=== PATIENT | male | born 1930 ===

== ENCOUNTER 2016-10-07 11:07 | Inpatient (IN) | payer MEDICARE ==
[2016-10-07] VITALS (8 sets, daily range): BP systolic 106–119; BP diastolic 55–59; PULSE 60–78; RESP 16–24; TEMP 96–97.6; O2SAT 99–100
[~2016-10-07] VITALS: Ht 177.8 cm; Wt 68.9 kg
--- NOTE | 2016-10-07 11:16 | PD ---
HPI . Abnormal labs Chief Complaint: abnormal labs Time Seen by Provider: 11:16 Travel History International Travel<30 days: No Contact w/Intl Traveler<30days: No Traveled to known affect area: No History of Present Illness HPI 86-year-old male with multiple medical issues including diabetes, chronic kidney disease, atrial fibrillation, hypothyroidism, hyperlipidemia, GERD, atherosclerotic heart disease, CHF, Parkinson's disease here with abnormal BUN/ creatinine. Patient resides in independent living facility in [place] and was called by his primary care provider Dr. Spears and told to go to the nearest emergency department. Patient was reported to have a BUN of 97 and a creatinine of 2.2. Patient was told he was in acute on chronic kidney disease. He [facility]. Currently he has no complaints. He denies any changes with his urine production or stream. He denies any type of pain. He tells me he feels good and just came in because, "The doctor told me my kidneys are failing." He is not a dialysis patient. FORMERLY [facility], [facility] Social History Alcohol Use: No Tobacco Use: No Substance Use: No Allergies-Medications (Allergen,Severity, Reaction): Coded Allergies: No Known Allergies (Unverified , 10/07/16) Reported Meds & Prescriptions Reported Meds & Active Scripts Active Reported Symbicort Inh (Budesonide/Formoterol Fumarate) 160-4.5 Mcg/Act Aero 2 Puff INH Q12HR Metolazone 2.5 Mg Tab 2.5 Mg PO EVERY 48 HOURS PRN Potassium Chloride ER (Potassium Chloride) 10 Meq Tab 10 Meq PO BID Glipizide 5 Mg Tab 5 Mg PO BID Bumetanide 2 Mg Tab 2 Mg PO BID Trazodone (Trazodone HCl) 50 Mg Tab 50 Mg PO HS Aldactone (Spironolactone) 25 Mg Tab 25 Mg PO DAILY Primidone 50 Mg Tab 100 Mg PO HS Omeprazole 20 Mg Tab 20 Mg PO DAILY Take 30 minutes before meal Metoprolol Succinate ER 24 HR (Metoprolol Succinate) 50 Mg Tab 50 Mg PO DAILY Losartan (Losartan Potassium) 25 Mg Tab 25 Mg PO DAILY Levothyroxine (Levothyroxine Sodium) 75 Mcg Tab 75 Mcg PO DAILY Ferrousul (Ferrous Sulfate) 325 Mg Tab 325 Mg PO DAILY Lanoxin (Digoxin) 125 Mcg Tablet 125 Mcg PO MOWEFR Take 1 tablet (125mcg) daily on Sunday,Sunday and Sunday Lanoxin (Digoxin) 125 Mcg Tablet 62.5 Mcg PO SUNDAY Take 1/2 tab (62.5mcg) weekly on Sundays Aspirin Adult Low Strength (Aspirin) 81 Mg Tabdr 81 Mg PO DAILY Allopurinol 300 Mg Tab 150 Mg PO DAILY Review of Systems General / Constitutional: No: Fever Eyes: No: Visual changes HENT: No: Headaches Cardiovascular: No: Chest Pain or Discomfort, Palpitations, Irregular Rhythm, Tachycardia Respiratory: No: Cough, Shortness of Breath Gastrointestinal: No: Nausea, Vomiting, Diarrhea, Abdominal Pain Genitourinary: No: Urgency, Frequency, Dysuria, Nocturia, Hematuria, Flank Pain Musculoskeletal: No: Myalgias, Pain Skin: No Rash Neurologic: No: Weakness Psychiatric: No: Depression Endocrine: No: Polydipsia Hematologic/Lymphatic: No: Easy Bruising Physical Exam Narrative GENERAL: AAO x 3, no acute distress, Well-nourished, well-developed patient. SKIN: Warm and dry. No visible rashes or bruising. HEAD: Normocephalic and atraumatic. EYES: No scleral icterus. No injection or drainage. EOM intact, PERRLA ENT: No nasal drainage noted. Mucous membranes pink. Airway patent. NECK: Supple, trachea midline. No JVD. no lymphadenopathy CARDIOVASCULAR: Regular rate and rhythm without murmurs, gallops, or rubs. RESPIRATORY: Breath sounds diminished. No accessory muscle use. No rhonchi or rales. normoactive bowel sounds GASTROINTESTINAL: Abdomen soft, non-tender, nondistended. EXTREMITIES: No cyanosis or edema. BACK: Nontender without obvious deformity. No CVA tenderness. NEURO: CN II-12 intact, baker paint strength normal b/l, UE and LE 5/5, no focal deficits PSYCH: AAO x 3, normal affect. Data Data Last Documented VS Vital Signs Date Time Temp Pulse Resp B/P Pulse Ox O2 Delivery O2 Flow Rate FiO2 10/07/16 12:57 76 19 119/57 100 Nasal Cannula 2 10/07/16 11:33 97.6 Orders Complete Blood Count With Diff (10/07/16 11:23) Comprehensive Metabolic Panel (10/07/16 11:23) Chest, Single Ap (10/07/16 ) Sodium Chlor 0.9% 1000 Ml Inj (Ns 1000 M (10/07/16 12:30) Diet Heart Healthy (10/07/16 Lunch) Diet 1800 Ada Cons Carb (10/07/16 Lunch) Vital Signs (Adult) HÉCTOR.Q4H (10/07/16 13:09) Basic Metabolic Panel (Bmp) (10/08/16 06:00) Blood Glucose Goal (Criteria) (10/07/16 13:09) Hypoglycemia 70 Mg/Dl Or < (10/07/16 13:09) Notify Dr: Other (10/07/16 13:09) Dextrose 50% In Evaristo (Vial) Inj (D50w (Vi (10/07/16 13:15) Glucagon Inj (Glucagon Inj) (10/07/16 13:15) Insulin Aspart Supplemtl Scale (Novolog (10/07/16 16:00) Acetaminophen (Tylenol) (10/07/16 13:15) Intake + Output 06,14,22 (10/07/16 13:09) Ondansetron Inj (Zofran Inj) (10/07/16 13:15) Admit To Inpatient (10/07/16 ) Inpatient Certification (10/07/16 ) Us Kidney/Renal/Bladder (10/07/16 ) Consult Nephrology (10/07/16 ) Consult Pt Eval & Treat (10/07/16 13:28) Scd Bilateral/Knee High HÉCTOR.QSHIFT (10/07/16 13:28) Code Status (10/07/16 13:28) Allopurinol (Zyloprim) (10/08/16 09:00) Aspirin Ec (Ecotrin Ec) (10/08/16 09:00) Budeson-Formot 160-4.5 Mg Inh (Symbicort (10/07/16 21:00) Digoxin (Lanoxin) (10/08/16 09:00) Digoxin (Lanoxin) (10/09/16 13:30) Ferrous Sulfate (Ferrous Sulfate) (10/08/16 09:00) Levothyroxine (Synthroid) (10/08/16 09:00) Metoprolol Succinate Er (Toprol Xl) (10/08/16 09:00) Primidone (Mysoline) (10/07/16 21:00) Pantoprazole (Protonix) (10/08/16 09:00) Sodium Chlor 0.9% 1000 Ml Inj (Ns 1000 M (10/07/16 13:45) Albuterol Neb (Albuterol Neb) (10/07/16 13:45) Pill Splitter (Pill Splitter) (10/07/16 13:45) Ua With No Microscopy (10/07/16 13:37) Digoxin (10/07/16 13:37) Admit Order (Ed Use Only) (10/07/16 13:44) Labs Laboratory Tests Test 10/07/16 11:30 White Blood Count 8.8 TH/MM3 Red Blood Count 3.46 MIL/MM3 Hemoglobin 11.4 GM/DL Hematocrit 32.6 % Mean Corpuscular Volume 94.4 FL Mean Corpuscular Hemoglobin 32.9 PG Mean Corpuscular Hemoglobin 34.9 % Concent Red Cell Distribution Width 16.3 % Platelet Count 123 TH/MM3 Mean Platelet Volume 7.5 FL Neutrophils (%) (Auto) 74.1 % Lymphocytes (%) (Auto) 13.1 % Monocytes (%) (Auto) 9.9 % Eosinophils (%) (Auto) 2.1 % Basophils (%) (Auto) 0.8 % Neutrophils # (Auto) 6.5 TH/MM3 Lymphocytes # (Auto) 1.2 TH/MM3 Monocytes # (Auto) 0.9 TH/MM3 Eosinophils # (Auto) 0.2 TH/MM3 Basophils # (Auto) 0.1 TH/MM3 CBC Comment AUTO DIFF Differential Comment AUTO DIFF CONFIRMED Sodium Level 135 MEQ/L Potassium Level 3.8 MEQ/L Chloride Level 96 MEQ/L Carbon Dioxide Level 32.6 MEQ/L Anion Gap 6 MEQ/L Blood Urea Nitrogen 101 MG/DL Creatinine 2.30 MG/DL Estimat Glomerular Filtration 27 ML/MIN Rate Random Glucose 132 MG/DL Calcium Level 9.0 MG/DL Total Bilirubin 0.4 MG/DL Aspartate Amino Transf 18 U/L (AST/SGOT) Alanine Aminotransferase 26 U/L (ALT/SGPT) Alkaline Phosphatase 67 U/L Total Protein 7.7 GM/DL Albumin 3.6 GM/DL MDM Medical Decision Making Medical Screen Exam Complete: Yes Emergency Medical Condition: Yes Medical Record Reviewed: Yes Differential Diagnosis acute on chronic kidney disease, anemia, upper GI bleed, Narrative Course 86-year-old male sent by his primary care provider for worsening BUN and creatinine. Patient does have chronic kidney disease. IV access, labs and chest x-ray have been ordered. Chest x-ray without any evidence of acute CHF. BUN and creatinine are elevated. BUN 101. Case discussed with my attending Dr. Fitzpatrick, who has also seen the patient. IV fluids provided. Recommended overnight admission and possible consultation with nephrology pending recommendations from hospitalist team. I have discussed with patient and he has accepted the recommended treatment plan. [id number]: Callback requested from [facility] Discussed with Dr. Velázquez, who has accepted the patient for inpatient admission. Diagnosis Primary Impression: Acute on chronic kidney failure Qualified Code: N17.9 - Acute renal failure superimposed on chronic kidney disease, unspecified CKD stage, unspecified acute renal failure type Admitting Information Admitting Physician Requests: Admit Condition: Stable Ashley Ledesma Oct 07, 2016 11:16
--- NOTE | 2016-10-07 11:51 | RADRPT ---
EXAM DATE/TIME: 10/07/2016 11:42 [facility] COMPARISON: No previous studies available for comparison. INDICATIONS : Cough and shortness of breath. MEDICAL HISTORY : Chronic obstructive pulmonary disease. A-fib. SURGICAL HISTORY : Pacemaker. CABG. ENCOUNTER: Initial ACUITY: 2 days PAIN SCORE: 0/10 LOCATION: chest FINDINGS: The heart is enlarged. The patient is post median sternotomy. There chronic interstitial changes with in the pulmonary parenchyma. There is minimal effusion at the right lung base. There is a pacer in pl huma. The visualized bony structures demonstrate degenerative changes but are otherwise intact. CONCLUSION: 1. Interstitial changes and mild cardiomegaly. 2. Minimal right basilar pleural effusion. 3. Of note, the third sternal wire is no longer intact. 4. No acute abnormalities. Eddie Barkley MD on October 07, 2016 at 11:47 Board Certified Radiologist. This report was verified electronically.
[2016-10-07 11:53] LABS: AUTOMATED NEUTROPHIL # 6.5 TH/MM3 (1.8-7.7); BASOPHIL # 0.1 TH/MM3 (0-0.2); BASOPHIL % 0.8 % (0.0-2.0); EOSINOPHIL # 0.2 TH/MM3 (0-0.4); EOSINOPHIL % 2.1 % (0.0-4.0); HEMATOCRIT 32.6 % (39.0-51.0); LYMPH % 13.1 % (9.0-44.0); LYMPHOCYTE # 1.2 TH/MM3 (1.0-4.8); MEAN CELL VOLUME 94.4 FL (80.0-100.0); MEAN CORPUSCULAR HEMOGLOBIN 32.9 PG (27.0-34.0); MEAN CORPUSCULAR HGB CONC 34.9 % (32.0-36.0); MONO % 9.9 % (0.0-8.0); NEUT % 74.1 % (16.0-70.0); PLATELET COUNT 123 TH/MM3 (150-450); RED BLOOD COUNT 3.46 MIL/MM3 (4.50-5.90); RED CELL DISTRIBUTION WIDTH 16.3 % (11.6-17.2); WHITE BLOOD COUNT 8.8 TH/MM3 (4.0-11.0)
[2016-10-07 11:54] LABS: HEMO FLAGS AUTO DIFF
[2016-10-07] MEDS ORDERED: METO50TA11 PO (12:01)
[2016-10-07] MEDS ORDERED: LEVO75TA3 PO (12:01)
[2016-10-07] MEDS ORDERED: ALLO300T2 PO (12:01)
[2016-10-07] MEDS ORDERED: GLIP5TAB8 PO (12:01)
[2016-10-07] MEDS ORDERED: TRAZ50TA12 PO (12:01)
[2016-10-07] MEDS ORDERED: ASPI1TAB91 PO (12:01)
[2016-10-07] MEDS ORDERED: OMEP20TA PO (12:01)
[2016-10-07] MEDS ORDERED: LOSA25TA PO (12:01)
[2016-10-07] MEDS ORDERED: FERR325T86 PO (12:01)
[2016-10-07] MEDS ORDERED: METO2.5T PO (12:01)
[2016-10-07] MEDS ORDERED: BUME2TAB PO (12:01)
[2016-10-07] MEDS ORDERED: SPIR25 PO (12:01)
[2016-10-07] MEDS ORDERED: PRIM50TA5 PO (12:01)
[2016-10-07] MEDS ORDERED: POTA10TA2 PO (12:01)
[2016-10-07] MEDS ORDERED: LANO0.12 PO ×2 (12:01)
[2016-10-07 12:10] LABS: ALT (GPT) 26 U/L (12-78); ANION GAP 6 MEQ/L (5-15); AST (GOT) 18 U/L (15-37); BICARBONATE 32.6 MEQ/L (21.0-32.0); BLOOD UREA NITROGEN 101 MG/DL (7-18); CHLORIDE 96 MEQ/L (98-107); GLOMERULAR FILTRATION RATE 27 ML/MIN (>89); POTASSIUM 3.8 MEQ/L (3.5-5.1); SODIUM (NA) 135 MEQ/L (136-145)
[2016-10-07 12:11] LABS: ALKALINE PHOSPHATASE 67 U/L (45-117); TOTAL BILIRUBIN ADULT 0.4 MG/DL (0.2-1.0)
[2016-10-07] MEDS ORDERED: SODIUM CHLOR 0.9% 1000 ML INJ 1,000 ML IV ONE ×2 (12:30→13:45)
[2016-10-07 12:31] LABS: SCAN/DIFF AUTO DIFF CONFIRMED
[2016-10-07] MEDS ORDERED: SYMB160A INH (12:56)
[2016-10-07] MEDS ORDERED: ACETAMINOPHEN 325 MG TAB PO PRN (13:15)
[2016-10-07] MEDS ORDERED: DEXTROSE 50% IN WATER 50 ML VIAL(D50) IV PRN (13:15)
[2016-10-07] MEDS ORDERED: ONDANSETRON HCL 4 MG/2 ML VIAL IV PUSH PRN (13:15)
[2016-10-07] MEDS ORDERED: GLUCAGON 1 MG/ML VIAL OTHER PRN (13:15)
[2016-10-07] MEDS ORDERED: RESP: ALBUTEROL 1.25 MG/3 ML NEB (PRN) NEB (13:45)
[2016-10-07] MEDS ORDERED: PILL SPLITTER OTHER PRN (13:45)
--- NOTE | 2016-10-07 13:46 | HHI.HP ---
[facility] Unknown Admission Diagnosis renal failure Diagnoses: (1) Acute on chronic kidney failure Diagnosis: Principal Chief Complaint: ' I was told to come to the hospital'. Travel History International Travel<30 Days: No Contact w/Intl Traveler <30 Da: No Traveled to Known Affected Are: No History of Present Illness patient is a 86 y/o male with history of renal insufficiency, CHF, diabetes, COPD, Parkinson's disease,hypothyroidism, who presented to ER after he was advised to come to the hospital by his PCP. he says that he had a ' blood work' done few days ago and he was called with the result of his blood work and advised to come to ER due to his elevated BUN and creatinine. however he denies any new symptom- including chest pain, nausea, abdominal pain, dizziness. he says that he's had some sob ' which is not new' and he relates this to his CHF and COPD. of note he's on home oxygen. Review of Systems Constitutional: DENIES: Fever, Weight loss, Chills, Night Sweats Eyes: DENIES: Blurred vision, Diplopia, Vision loss, Double Vision Ears, nose, mouth, throat: DENIES: Tinnitus, Vertigo, Throat pain, Epistaxis Respiratory: COMPLAINS OF: Shortness of breath, DENIES: Apneas, Cough, Snoring , Wheezing, Hemoptysis, Sputum production Cardiovascular: DENIES: Chest pain, Palpitations, Syncope, Dyspnea on Exertion , PND, Lower Extremity Edema, Orthopnea, Claudication Gastrointestinal: DENIES: Abdominal pain, Black stools, Bloody stools, Constipation, Diarrhea, Nausea, Vomiting, Difficulty Swallowing, Anorexia Genitourinary: DENIES: Urinary frequency, Urgency, Hematuria, Dysuria Musculoskeletal: DENIES: Joint pain, Muscle aches, Stiffness, Joint Swelling Integumentary: DENIES: Rash Neurologic: DENIES: Abnormal gait, Headache, Localized weakness, Paresthesias, Seizures, Speech Problems, Tremor, Poor Balance Psychiatric: DENIES: Anxiety, Confusion, Mood changes, Depression, Hallucinations, Agitation, Suicidal Ideation, Homicidal Ideation, Delusions Past Family Social History Past Medical History CHF diabetes mellitus CAD renal insufficiency hypothyroidism parkinson's disease Past Surgical History CABG hernia repair Reported Medications Symbicort Inh (Budesonide/Formoterol Fumarate) 160-4.5 Mcg/Act Aero 2 Puff INH Q12HR Metolazone 2.5 Mg Tab 2.5 Mg PO EVERY 48 HOURS PRN Potassium Chloride ER (Potassium Chloride) 10 Meq Tab 10 Meq PO BID Glipizide 5 Mg Tab 5 Mg PO BID Bumetanide 2 Mg Tab 2 Mg PO BID Trazodone (Trazodone HCl) 50 Mg Tab 50 Mg PO HS Aldactone (Spironolactone) 25 Mg Tab 25 Mg PO DAILY Primidone 50 Mg Tab 100 Mg PO HS Omeprazole 20 Mg Tab 20 Mg PO DAILY Take 30 minutes before meal Metoprolol Succinate ER 24 HR (Metoprolol Succinate) 50 Mg Tab 50 Mg PO DAILY Losartan (Losartan Potassium) 25 Mg Tab 25 Mg PO DAILY Levothyroxine (Levothyroxine Sodium) 75 Mcg Tab 75 Mcg PO DAILY Ferrousul (Ferrous Sulfate) 325 Mg Tab 325 Mg PO DAILY Lanoxin (Digoxin) 125 Mcg Tablet 125 Mcg PO Take 1 tablet (125mcg) daily on Sunday,Sunday and Sunday Lanoxin (Digoxin) 125 Mcg Tablet 62.5 Mcg PO SUNDAY Take 1/2 tab (62.5mcg) weekly on Sundays Aspirin Adult Low Strength (Aspirin) 81 Mg Tabdr 81 Mg PO DAILY Allopurinol 300 Mg Tab 150 Mg PO DAILY Allergies: Coded Allergies: No Known Allergies (Unverified , 10/07/16) Active Ordered Medications Current Medications Sodium Chloride (NS 1000 ml Inj) 1,000 ml @ 999 mls/hr BOLUS ONCE IV Last administered on 10/07/16t 12:39; Start 10/07/16 at 12:30; Stop 10/07/16 at 13:30 Dextrose (D50w (Vial) Inj) 50 ml UNSCH PRN IV HYPOGLYCEMIA-SEE COMMENTS; Start 10/07/16 at 13:15 Glucagon (Glucagon Inj) 1 mg UNSCH PRN OTHER HYPOGLYCEMIA-SEE COMMENTS; Start 10/07/16 at 13:15 Insulin Aspart (NovoLOG SUPPLEMENTAL SCALE) 1 ACHS SLIDING SCALE SQ ; Start at 16:00 Acetaminophen (Tylenol) 650 mg Q4H PRN PO FEVER/PAIN 1-10; Start 10/07/16 at 13 :15 Ondansetron HCl (Zofran Inj) 4 mg Q8HR PRN IV PUSH NAUSEA; Start 10/07/16 at 13 :15 Family History heart disease in father. Social History quit smoking years ago- [facility] resident. Physical Exam Vital Signs Vital Signs Date Time Temp Pulse Resp B/P Pulse Ox O2 Delivery O2 Flow Rate FiO2 10/07/16 12:57 76 19 119/57 100 Nasal Cannula 2 10/07/16 11:36 70 19 106/56 100 Nasal Cannula 2 10/07/16 11:33 97.6 60 24 106/56 100 Physical Exam GENERAL: elderly male, in no apparent distress. SKIN: No rashes, ecchymoses or lesions. Cool and dry. HEAD: Atraumatic. Normocephalic. No temporal or scalp tenderness. EYES: Pupils equal round and reactive. Extraocular motions intact. No scleral icterus. No injection or drainage. ENT: Nose without bleeding, purulent drainage or septal hematoma. Throat without erythema, tonsillar hypertrophy or exudate. Uvula midline. Airway patent. NECK: Trachea midline. No JVD or lymphadenopathy. Supple, nontender, no meningeal signs. CARDIOVASCULAR: Regular rate and rhythm without murmurs, gallops, or rubs. RESPIRATORY: Clear to auscultation. Breath sounds equal bilaterally. No wheezes , rales, or rhonchi. GASTROINTESTINAL: Abdomen soft, non-tender, nondistended. No hepato-splenomegaly , or palpable masses. No guarding. MUSCULOSKELETAL: Extremities with mild bilateral pedal edema. NEUROLOGICAL: Awake and alert. Cranial nerves II through XII intact. Motor and sensory grossly within normal limits. Five out of 5 muscle strength in all muscle groups. Normal speech. Laboratory Laboratory Tests Test 10/07/16 11:30 White Blood Count 8.8 Red Blood Count 3.46 Hemoglobin 11.4 Hematocrit 32.6 Mean Corpuscular Volume 94.4 Mean Corpuscular Hemoglobin 32.9 Mean Corpuscular Hemoglobin 34.9 Concent Red Cell Distribution Width 16.3 Platelet Count 123 Mean Platelet Volume 7.5 Neutrophils (%) (Auto) 74.1 Lymphocytes (%) (Auto) 13.1 Monocytes (%) (Auto) 9.9 Eosinophils (%) (Auto) 2.1 Basophils (%) (Auto) 0.8 Neutrophils # (Auto) 6.5 Lymphocytes # (Auto) 1.2 Monocytes # (Auto) 0.9 Eosinophils # (Auto) 0.2 Basophils # (Auto) 0.1 CBC Comment AUTO DIFF Differential Comment AUTO DIFF CONFIRMED Sodium Level 135 Potassium Level 3.8 Chloride Level 96 Carbon Dioxide Level 32.6 Anion Gap 6 Blood Urea Nitrogen 101 Creatinine 2.30 Estimat Glomerular Filtration 27 Rate Random Glucose 132 Calcium Level 9.0 Total Bilirubin 0.4 Aspartate Amino Transf 18 (AST/SGOT) Alanine Aminotransferase 26 (ALT/SGPT) Alkaline Phosphatase 67 Total Protein 7.7 Albumin 3.6 Result Diagram: 10/07/16 1130 10/07/16 1130 Imaging Last Impressions Chest X-Ray 10/07/16 0000 Signed Impressions: Service Date/Time: Sunday, October 07, 2016 11:42 - CONCLUSION: 1. Interstitial changes and mild cardiomegaly. 2. Minimal right basilar pleural effusion. 3. Of note, the third sternal wire is no longer intact. 4. No acute abnormalities. Eddie Barkley MD Assessment and Plan Assessment and Plan A/P - renal insufficiency with unknown duration- however the patient is reportedly being followed up by nephrology but was referred to ER by his PCP for elevated BUN/ Creatinine. suspect acute kidney injury superimposed on chronic renal insufficiency. continue with gentle IV hydration in light of his CHF- monitor I/O and renal function- check UA and renal sonogram and consult nephrology- will avoid nephrotoxins -CHF; hold diuretics and losartan for now due to renal insufficiency- continue BB -COPD with no exacerbation; resume Symbicort- neb treatment as needed- patient is on home oxygen -diabetes mellitus; start accu-check with SSI -CAD- continue aspirin and BB -hypothyroidism; resume levothyroxine -DVT prophylaxis with SCD's -DNR status per my discussion with the family -consult PT Code Status DNR status. Discussed Condition With the patient, his daughter. ER. case management. Physician Certification 2 Midnight Certification Type: Admission for Inpatient Services Order for Inpatient Services The services are ordered in accordance with Medicare regulations or non- Medicare payer requirements, as applicable. In the case of services not specified as inpatient-only, they are appropriately provided as inpatient services in accordance with the 2-midnight benchmark. Estimated LOS (days): 2 days is the estimated time the patient will need to remain in the hospital, assuming treatment plan goals are met and no additional complications. Post-Hospital Plan: Not yet determined Problem Qualifiers (1) Acute on chronic kidney failure: Qualified Code: N17.9 - Acute renal failure superimposed on chronic kidney disease, unspecified CKD stage, unspecified acute renal failure type Tatyana Velázquez MD Oct 07, 2016 13:45
--- NOTE | 2016-10-07 14:32 | RADRPT ---
EXAM DATE/TIME: 10/07/2016 13:46 [facility] COMPARISON: No previous studies available for comparison. INDICATIONS : Increased Bun and Creatinine. MEDICAL HISTORY : Parkinson's. Hypertension. Hypothyroidism. Diabetic. CKD. Afib. Hyperlipid. GERD. Atherosclerosi s. CHF. SURGICAL HISTORY : Pacemaker. ENCOUNTER: Initial ACUITY: 1 day PAIN SCORE: 0/10 LOCATION: Bilateral flank MEASUREMENTS: RIGHT KIDNEY: 12.2 x 5.8 x 6.2 cm LEFT KIDNEY: 13.2 x 4.0 x 6.8 cm FINDINGS: RIGHT KIDNEY: There is severe dilatation of the right collecting system and ureter. No right renal masses seen. LEFT KIDNEY: There is mild to moderate dilatation of the left collecting system and ureter. BLADDER: Bladder is distended. The bladder wall appears thickened and trabeculated. The prostate is enlarged m easuring 7.0 x 4.6 x 5.8 cm. The bladder volume is 671 cc prevoid and 531 cc post void. CONCLUSION: 1. Bilateral dilatation of the collecting systems and ureters being worse on the right. 2. Distended trabeculated bladder. There is a large postvoid residual. Bladder outlet obstruction nee ds to be suspected. 3. Prostatic enlargement. Shorty Wolf MD on October 07, 2016 at 14:25 Board Certified Radiologist. This report was verified electronically.
[2016-10-07] MEDS: INSULIN ASPART SUPPLEMENTAL SCALE SQ SCH ×2 (18:06→21:19)
--- NOTE | 2016-10-07 20:19 | PD.CONS ---
HPI Consult Requested By Reason for Consult Acute on chronic renal insufficiency Primary Care Physician Unknown History of Present Illness This patient is an 86-year-old male indicates that he does have a history of chronic kidney disease and sees a concrete form setter at the [facility]. Apparently his primary care physician advised him to come to the hospital after he was noted that his creatinine risen to 2.2 with a urea nitrogen of 97. Denies any previous urological problems or any difficulty urinating however on presentation the patient was noted to have evidence of hydronephrosis with a significantly elevated post void bladder urine volume. Denies using NSAIDs at home. No history of diarrhea or vomiting. Review of Systems Constitutional: COMPLAINS OF: Fatigue, Weight loss, DENIES: Diaphoretic episodes, Fever, Weight gain, Chills, Dizziness, Change in appetite, Night Sweats Endocrine: COMPLAINS OF: Heat/cold intolerance, DENIES: Polydipsia, Polyuria, Polyphagia Respiratory: DENIES: Apneas, Cough, Snoring, Wheezing, Hemoptysis, Sputum production, Shortness of breath Cardiovascular: DENIES: Chest pain, Palpitations, Syncope, Dyspnea on Exertion , PND, Lower Extremity Edema, Orthopnea, Claudication Gastrointestinal: DENIES: Abdominal pain, Black stools, Bloody stools, Constipation, Diarrhea, Nausea, Vomiting, Difficulty Swallowing, Anorexia Musculoskeletal: COMPLAINS OF: Joint pain, DENIES: Muscle aches, Stiffness, Joint Swelling, Back pain, Neck pain Past Family Social History Allergies: Coded Allergies: No Known Allergies (Unverified , 10/07/16) Past Medical History Chronic kidney disease CHF COPD Diabetes mellitus Parkinson's disease. Hypothyroidism. Need for home oxygen. Past Surgical History Noncontributory to current complaint. Reported Medications Reported Meds & Active Scripts Active Reported Symbicort Inh (Budesonide/Formoterol Fumarate) 160-4.5 Mcg/Act Aero 2 Puff INH Q12HR Metolazone 2.5 Mg Tab 2.5 Mg PO EVERY 48 HOURS PRN Potassium Chloride ER (Potassium Chloride) 10 Meq Tab 10 Meq PO BID Glipizide 5 Mg Tab 5 Mg PO BID Bumetanide 2 Mg Tab 2 Mg PO BID Trazodone (Trazodone HCl) 50 Mg Tab 50 Mg PO HS Aldactone (Spironolactone) 25 Mg Tab 25 Mg PO DAILY Primidone 50 Mg Tab 100 Mg PO HS Omeprazole 20 Mg Tab 20 Mg PO DAILY Take 30 minutes before meal Metoprolol Succinate ER 24 HR (Metoprolol Succinate) 50 Mg Tab 50 Mg PO DAILY Losartan (Losartan Potassium) 25 Mg Tab 25 Mg PO DAILY Levothyroxine (Levothyroxine Sodium) 75 Mcg Tab 75 Mcg PO DAILY Ferrousul (Ferrous Sulfate) 325 Mg Tab 325 Mg PO DAILY Lanoxin (Digoxin) 125 Mcg Tablet 125 Mcg PO Take 1 tablet (125mcg) daily on Sunday,Sunday and Sunday Lanoxin (Digoxin) 125 Mcg Tablet 62.5 Mcg PO SUNDAY Take 1/2 tab (62.5mcg) weekly on Sundays Aspirin Adult Low Strength (Aspirin) 81 Mg Tabdr 81 Mg PO DAILY Allopurinol 300 Mg Tab 150 Mg PO DAILY Active Ordered Medications Current Medications Sodium Chloride (NS 1000 ml Inj) 1,000 ml @ 999 mls/hr BOLUS ONCE IV Last administered on 10/07/16 12:39; Start 10/07/16 at 12:30; Stop 10/07/16 at 13:30 ; Status DC Dextrose (D50w (Vial) Inj) 50 ml UNSCH PRN IV HYPOGLYCEMIA-SEE COMMENTS; Start 10/07/16 at 13:15 Glucagon (Glucagon Inj) 1 mg UNSCH PRN OTHER HYPOGLYCEMIA-SEE COMMENTS; Start 10/07/16 at 13:15 Insulin Aspart (NovoLOG SUPPLEMENTAL SCALE) 1 ACHS SLIDING SCALE SQ Last administered on 10/07/16 18:06; Start 10/07/16 at 16:00 Acetaminophen (Tylenol) 650 mg Q4H PRN PO FEVER/PAIN 1-10; Start 10/07/16 at 13 :15 Ondansetron HCl (Zofran Inj) 4 mg Q8HR PRN IV PUSH NAUSEA; Start 10/07/16 at 13 :15 Allopurinol (Zyloprim) 150 mg DAILY PO ; Start 10/08/16 at 09:00 Aspirin (Ecotrin Ec) 81 mg DAILY PO ; Start 10/08/16 at 09:00 Budesonide/ Formoterol Fumarate (Symbicort 160-4.5 Inh) 2 puff Q12HR INH ; Start 10/07/16 at 21:00 Digoxin (Lanoxin) 0.0625 mg ONCE PO ; Start 10/08/16 at 09:00; Stop 10/08/16 at 12:00 Digoxin (Lanoxin) 0.125 mg MOWEFR PO ; Start 10/09/16 at 13:30 Ferrous Sulfate (Ferrous Sulfate) 325 mg DAILY PO ; Start 10/08/16 at 09:00 Levothyroxine Sodium (Synthroid) 75 mcg DAILY PO ; Start 10/08/16 at 09:00 Metoprolol Succinate (Toprol Xl) 50 mg DAILY PO ; Start 10/08/16 at 09:00 Primidone (Mysoline) 100 mg HS PO ; Start 10/07/16 at 21:00 Pantoprazole Sodium 20 mg 20 mg DAILY PO ; Start 10/08/16 at 09:00 Sodium Chloride (NS 1000 ml Inj) 1,000 ml @ 50 mls/hr Q20H ONCE IV Last administered on 10/07/16t 14:22; Start 10/07/16 at 13:45; Stop 10/08/16 at 09:44 Albuterol Sulfate (Albuterol Neb) 1.25 mg Q4HR NEB PRN NEB SHORTNESS OF BREATH ; Start 10/07/16 at 13:45 Miscellaneous (Pill Splitter) 1 ea UNSCH PRN OTHER SEE LABEL COMMENTS; Start at 13:45 Family History Denies known family history of renal disease. Social History As per H&P. Resides in assisted living facility. Physical Exam Vital Signs GENERAL: Elderly gentleman who appears somewhat debilitated and somewhat malnourished also. SKIN: Warm and dry. HEAD: Normocephalic. EYES: No scleral icterus. No injection or drainage. NECK: Supple, trachea midline. No JVD or lymphadenopathy. CARDIOVASCULAR: Regular rate and rhythm without murmurs, gallops, or rubs. RESPIRATORY: Breath sounds equal bilaterally. No accessory muscle use. GASTROINTESTINAL: Abdomen soft, non-tender, nondistended. MUSCULOSKELETAL: No cyanosis, or edema. BACK:. No CVA tenderness. Vital Signs Date Time Temp Pulse Resp B/P Pulse Ox O2 Delivery O2 Flow Rate FiO2 10/07/16 15:55 116/59 10/07/16 15:15 96.0 74 18 100 10/07/16 14:22 78 16 110/56 100 Nasal Cannula 2 10/07/16 12:57 76 19 119/57 100 Nasal Cannula 2 10/07/16 11:36 70 19 106/56 100 Nasal Cannula 2 10/07/16 11:33 97.6 60 24 106/56 100 Laboratory Laboratory Tests Test 10/07/16 11:30 White Blood Count 8.8 Red Blood Count 3.46 Hemoglobin 11.4 Hematocrit 32.6 Mean Corpuscular Volume 94.4 Mean Corpuscular Hemoglobin 32.9 Mean Corpuscular Hemoglobin 34.9 Concent Red Cell Distribution Width 16.3 Platelet Count 123 Mean Platelet Volume 7.5 Neutrophils (%) (Auto) 74.1 Lymphocytes (%) (Auto) 13.1 Monocytes (%) (Auto) 9.9 Eosinophils (%) (Auto) 2.1 Basophils (%) (Auto) 0.8 Neutrophils # (Auto) 6.5 Lymphocytes # (Auto) 1.2 Monocytes # (Auto) 0.9 Eosinophils # (Auto) 0.2 Basophils # (Auto) 0.1 CBC Comment AUTO DIFF Differential Comment AUTO DIFF CONFIRMED Sodium Level 135 Potassium Level 3.8 Chloride Level 96 Carbon Dioxide Level 32.6 Anion Gap 6 Blood Urea Nitrogen 101 Creatinine 2.30 Estimat Glomerular Filtration 27 Rate Random Glucose 132 Calcium Level 9.0 Total Bilirubin 0.4 Aspartate Amino Transf 18 (AST/SGOT) Alanine Aminotransferase 26 (ALT/SGPT) Alkaline Phosphatase 67 Total Protein 7.7 Albumin 3.6 Digoxin Level 0.8 Result Diagram: 10/07/16 1130 10/07/16 1130 Imaging Last 48 hours Impressions Renal Ultrasound 10/07/16 0000 Signed Impressions: Service Date/Time: Friday, October 07, 2016 13:46 - CONCLUSION: 1. Bilateral dilatation of the collecting systems and ureters being worse on the right. 2. Distended trabeculated bladder. There is a large postvoid residual. Bladder outlet obstruction needs to be suspected. 3. Prostatic enlargement. Shorty Wolf MD Chest X-Ray 10/07/16 0000 Signed Impressions: Service Date/Time: Friday, October 07, 2016 11:42 - CONCLUSION: 1. Interstitial changes and mild cardiomegaly. 2. Minimal right basilar pleural effusion. 3. Of note, the third sternal wire is no longer intact. 4. No acute abnormalities. Eddie Barkley MD Assessment and Plan Problem List: (1) Acute renal insufficiency Plan: The primary issue here is obstructive uropathy. Recommend urological consultation for management of same. Have taken liberty of ordering a Coe catheter however but definitive management will be urological. Patient may also have a mild component of dehydration. Continue IV fluids for the present. The patient may also develop polyuria post Coe placement secondary to nephrogenic diabetes insipidus which can be associated with relief of obstructive uropathy. Medications should be adjusted for the patient's estimated GFR if clinically indicated. Avoid agents with significant potential for nephrotoxicity possible including NSAIDs for analgesia, iodine contrast agents. Gadolinium is contraindicated if the GFR is below 30. (2) Obstructive uropathy Plan: Recommendations as above. (3) Chronic kidney disease Plan: Being followed as an outpatient by his [facility] concrete form setter. We'll screen for secondary hyperparathyroidism of renal disease. The patient will be seen when necessary. (4) History of congestive heart failure Plan: Currently compensated. Tr Weller MD Oct 07, 2016 20:19
[2016-10-07] MEDS: BUDESONIDE-FORMOTEROL 160/4.5 MCG INHALER INH SCH (21:20)
[2016-10-07] MEDS: PRIMIDONE 50 MG TAB PO SCH (21:20)
[2016-10-07 22:30] LABS: BLOOD, URINE NEG (NEG); GLUCOSE,URINE NEG (NEG); KETONE, URINE NEG (NEG); NITRITE,URINE NEG (NEG); URINE COLOR LIGHT-YELLOW (YELLW/STRAW)
[2016-10-08] VITALS (10 sets, daily range): BP systolic 108–118; BP diastolic 55–60; PULSE 70–79; RESP 16–18; TEMP 96.6–98.2; O2SAT 97–99
[2016-10-08] MEDS: INSULIN ASPART SUPPLEMENTAL SCALE SQ SCH ×4 (05:57→20:26)
[2016-10-08 07:06] LABS: BICARBONATE 29.5 MEQ/L (21.0-32.0); POTASSIUM 3.5 MEQ/L (3.5-5.1)
--- NOTE | 2016-10-08 07:44 | HHI.PR ---
Subjective Remarks f/u; acute kidney injury resting comfortably with no distress. has minimal to mild suprapubic pain. good urine output. Objective Vitals Vital Signs Date Time Temp Pulse Resp B/P Pulse Ox O2 Delivery O2 Flow Rate FiO2 10/08/16 04:00 97.0 70 16 114/58 98 10/08/16 00:00 96.6 74 17 118/57 99 10/07/16 20:30 99 Nasal Cannula 2.50 10/07/16 20:00 75 10/07/16 20:00 96.3 69 16 107/55 99 10/07/16 15:55 116/59 10/07/16 15:15 96.0 74 18 100 10/07/16 14:22 78 16 110/56 100 Nasal Cannula 2 10/07/16 12:57 76 19 119/57 100 Nasal Cannula 2 10/07/16 11:36 70 19 106/56 100 Nasal Cannula 2 10/07/16 11:33 97.6 60 24 106/56 100 I/O 10/07/16 10/07/16 10/07/16 10/08/16 10/08/16 10/08/16 07:00 15:00 23:00 07:00 15:00 23:00 Intake Total 480 ml 120 ml Output Total 300 ml 800 ml Balance 180 ml -680 ml Intake Oral 480 ml 120 ml Output Urine Total 300 ml 800 ml Bladder Scan Volume Amount 411 ml Result Diagram: 10/07/16 1130 10/08/16 0540 Imaging Last Impressions Renal Ultrasound 10/07/16 0000 Signed Impressions: Service Date/Time: Friday, October 07, 2016 13:46 - CONCLUSION: 1. Bilateral dilatation of the collecting systems and ureters being worse on the right. 2. Distended trabeculated bladder. There is a large postvoid residual. Bladder outlet obstruction needs to be suspected. 3. Prostatic enlargement. Shorty Wolf MD Chest X-Ray 10/07/16 0000 Signed Impressions: Service Date/Time: Friday, October 07, 2016 11:42 - CONCLUSION: 1. Interstitial changes and mild cardiomegaly. 2. Minimal right basilar pleural effusion. 3. Of note, the third sternal wire is no longer intact. 4. No acute abnormalities. Eddie Barkley MD Objective Remarks GENERAL: elderly male, in no apparent distress. CARDIOVASCULAR: Regular rate and regular rhythm without murmurs, gallops, or rubs. RESPIRATORY: Clear to auscultation. Breath sounds equal bilaterally. No wheezes , rales, or rhonchi. GASTROINTESTINAL: Abdomen soft, non-tender, nondistended. Normal, active bowel sounds urogenital; alonso cath in place MUSCULOSKELETAL: Extremities without clubbing, cyanosis, or edema. NEURO: Alert & Oriented x4 to person, place, time, situation. Moves all ext x4 Procedures none Medications and IVs Current Medications Sodium Chloride (NS 1000 ml Inj) 1,000 ml @ 999 mls/hr BOLUS ONCE IV Last administered on 10/07/16 12:39; Start 10/07/16 at 12:30; Stop 10/07/16 at 13:30 ; Status DC Dextrose (D50w (Vial) Inj) 50 ml UNSCH PRN IV HYPOGLYCEMIA-SEE COMMENTS; Start 10/07/16 at 13:15 Glucagon (Glucagon Inj) 1 mg UNSCH PRN OTHER HYPOGLYCEMIA-SEE COMMENTS; Start 10/07/16 at 13:15 Insulin Aspart (NovoLOG SUPPLEMENTAL SCALE) 1 ACHS SLIDING SCALE SQ Last administered on 10/07/16 21:19; Start 10/07/16 at 16:00 Acetaminophen (Tylenol) 650 mg Q4H PRN PO FEVER/PAIN 1-10; Start 10/07/16 at 13 :15 Ondansetron HCl (Zofran Inj) 4 mg Q8HR PRN IV PUSH NAUSEA; Start 10/07/16 at 13 :15 Allopurinol (Zyloprim) 150 mg DAILY PO ; Start 10/08/16 at 09:00 Aspirin (Ecotrin Ec) 81 mg DAILY PO ; Start 10/08/16 at 09:00 Budesonide/ Formoterol Fumarate (Symbicort 160-4.5 Inh) 2 puff Q12HR INH Last administered on 10/07/16 21:20; Start 10/07/16 at 21:00 Digoxin (Lanoxin) 0.0625 mg ONCE PO ; Start 10/08/16 at 09:00; Stop 10/08/16 at 12:00 Digoxin (Lanoxin) 0.125 mg MOWEFR PO ; Start 10/09/16 at 13:30 Ferrous Sulfate (Ferrous Sulfate) 325 mg DAILY PO ; Start 10/08/16 at 09:00 Levothyroxine Sodium (Synthroid) 75 mcg DAILY PO ; Start 10/08/16 at 09:00 Metoprolol Succinate (Toprol Xl) 50 mg DAILY PO ; Start 10/08/16 at 09:00 Primidone (Mysoline) 100 mg HS PO Last administered on 10/07/16 21:20; Start 10/07/16 at 21:00 Pantoprazole Sodium 20 mg 20 mg DAILY PO ; Start 10/08/16 at 09:00 Sodium Chloride (NS 1000 ml Inj) 1,000 ml @ 50 mls/hr Q20H ONCE IV Last administered on 10/07/16 14:22; Start 10/07/16 at 13:45; Stop 10/08/16 at 09:44 Albuterol Sulfate (Albuterol Neb) 1.25 mg Q4HR NEB PRN NEB SHORTNESS OF BREATH ; Start 10/07/16 at 13:45 Miscellaneous (Pill Splitter) 1 ea UNSCH PRN OTHER SEE LABEL COMMENTS; Start at 13:45 A/P Assessment and Plan A/P - renal insufficiency with unknown duration- however the patient is reportedly being followed up by nephrology but was referred to ER by his PCP for elevated BUN/ Creatinine. suspect acute kidney injury superimposed on chronic renal insufficiency due to possible bladder outlet obstruction. continue with gentle IV hydration in light of his CHF- monitor I/O and renal function- nephrology evaluation appreciated- urology consulted. -CHF; hold diuretics and losartan for now due to renal insufficiency- continue BB -COPD with no exacerbation; resumed Symbicort- neb treatment as needed- patient is on home oxygen -diabetes mellitus; on accu-check with SSI -CAD- continue aspirin and BB -hypothyroidism; resumed levothyroxine -DVT prophylaxis with SCD's -DNR status per my discussion with the family -consulted PT Tatyana Velázquez MD Oct 08, 2016 07:43
[2016-10-08] MEDS ORDERED: SODIUM CHLORID 0.9% 500 ML INJ 500 ML IV ONE (08:00)
[2016-10-08] MEDS: FERROUS SULFATE 325 MG (65 MG ELEMENTAL IRON) TAB PO SCH (08:01)
[2016-10-08] MEDS: BUDESONIDE-FORMOTEROL 160/4.5 MCG INHALER INH SCH ×2 (08:01→20:24)
[2016-10-08] MEDS: ALLOPURINOL 300 MG TAB PO SCH (08:01)
[2016-10-08] MEDS: ASPIRIN EC 81 MG TABEC PO SCH (08:01)
[2016-10-08] MEDS: PANTOPRAZOLE SOD 20 MG DELAYED RELEASE TAB PO SCH (08:01)
[2016-10-08] MEDS: METOPROLOL SUCCINATE 50 MG EXTENDED RELEASE TAB PO SCH (08:01)
[2016-10-08] MEDS ORDERED: DIGOXIN 0.125 MG TAB PO SCH (09:00)
[2016-10-08] MEDS ORDERED: LEVOTHYROXINE SODIUM 75 MCG TAB PO SCH (09:00)
--- NOTE | 2016-10-08 09:35 | PD.CONS ---
[facility] Service Urology Consult Requested By Reason for Consult Urinary retention Primary Care Physician Unknown Diagnosis: (1) Acute on chronic kidney failure ICD Code: N17.9 History of Present Illness 86-year-old gentleman with multiple medical problems who was admitted for further workup and management of abnormal laboratory findings. Patient resides at an assisted living facility and was contacted by his primary care physician to go to the emergency room for abnormal lab results on recent blood work. Patient was noted to have elevation of the BUN and creatinine. These labs were repeated in the emergency room and demonstrated a BUN of 101 with a creatinine of 2.3. A nephrology consult was obtained and a renal ultrasound study ordered. The renal ultrasound demonstrated dilation of the renal collecting system and ureters bilaterally, a distended thickened urinary bladder and enlarged prostate. Patient was catheterized with evacuation of 650 cc residual urine. An indwelling Coe catheter was ordered and a urology consult placed. At the time of consultation the patient reports that he typically only voids small amounts of urine at a time but denies flank pain dysuria or hematuria. He was not aware of any problems with his prostate in the past. He did have an indwelling Coe which was draining clear yellow urine. Review of Systems Constitutional: DENIES: Fever, Chills Gastrointestinal: DENIES: Abdominal pain Genitourinary: DENIES: Urgency, Hematuria Musculoskeletal: DENIES: Back pain Except as stated in HPI: all other systems reviewed are Neg Past Family Social History Past Medical History Congestive heart failure Chronic renal insufficiency COPD Parkinson's Hypothyroidism Past Surgical History CABG Status post herniorrhaphy Reported Medications Refer to EMR Allergies: Coded Allergies: No Known Allergies (Unverified , 10/07/16) Active Ordered Medications Refer to EMR Family History Heart disease Social History Former smoker who quit many years ago Denies alcohol or intravenous drug abuse Resides at assisted living facility Physical Exam Vital Signs Date Time Temp Pulse Resp B/P Pulse Ox O2 Delivery O2 Flow Rate FiO2 10/08/16 08:06 72 10/08/16 08:00 97.6 79 18 110/55 99 10/08/16 04:00 97.0 70 16 114/58 98 10/08/16 00:00 96.6 74 17 118/57 99 10/07/16 20:30 99 Nasal Cannula 2.50 10/07/16 20:00 75 10/07/16 20:00 96.3 69 16 107/55 99 10/07/16 15:55 116/59 10/07/16 15:15 96.0 74 18 100 10/07/16 14:22 78 16 110/56 100 Nasal Cannula 2 10/07/16 12:57 76 19 119/57 100 Nasal Cannula 2 10/07/16 11:36 70 19 106/56 100 Nasal Cannula 2 10/07/16 11:33 97.6 60 24 106/56 100 Physical Exam GENERAL: This is a well-nourished, well-developed patient, in no apparent distress. SKIN: No rashes, ecchymoses or lesions. Cool and dry. HEAD: Atraumatic. Normocephalic. No temporal or scalp tenderness. EYES: Pupils equal round and reactive. Extraocular motions intact. No scleral icterus. No injection or drainage. ENT: Nose without bleeding, purulent drainage or septal hematoma. Throat without erythema, tonsillar hypertrophy or exudate. Uvula midline. Airway patent. NECK: Trachea midline. No JVD or lymphadenopathy. Supple, nontender, no meningeal signs. GASTROINTESTINAL: Abdomen soft, non-tender, nondistended. No hepato-splenomegaly , or palpable masses. No guarding. GENITOURINARY: No CVA tenderness, Coe catheter in place draining clear yellow urine, digital rectal exam revealed a prostate approximately 50 g smooth without any palpable nodules. MUSCULOSKELETAL: Extremities without clubbing, cyanosis, or edema. No joint tenderness, effusion, or edema noted. No calf tenderness. Negative Homans sign bilaterally. NEUROLOGICAL: Awake and alert. Cranial nerves II through XII intact. Motor and sensory grossly within normal limits. Five out of 5 muscle strength in all muscle groups. Normal speech. Laboratory Tests Test 10/07/16 10/07/16 10/08/16 11:30 22:05 05:40 White Blood Count 8.8 Red Blood Count 3.46 Hemoglobin 11.4 Hematocrit 32.6 Mean Corpuscular Volume 94.4 Mean Corpuscular Hemoglobin 32.9 Mean Corpuscular Hemoglobin 34.9 Concent Red Cell Distribution Width 16.3 Platelet Count 123 Mean Platelet Volume 7.5 Neutrophils (%) (Auto) 74.1 Lymphocytes (%) (Auto) 13.1 Monocytes (%) (Auto) 9.9 Eosinophils (%) (Auto) 2.1 Basophils (%) (Auto) 0.8 Neutrophils # (Auto) 6.5 Lymphocytes # (Auto) 1.2 Monocytes # (Auto) 0.9 Eosinophils # (Auto) 0.2 Basophils # (Auto) 0.1 CBC Comment AUTO DIFF Differential Comment AUTO DIFF CONFIRMED Sodium Level 135 140 Potassium Level 3.8 3.5 Chloride Level 96 100 Carbon Dioxide Level 32.6 29.5 Anion Gap 6 11 Blood Urea Nitrogen 101 90 Creatinine 2.30 1.86 Estimat Glomerular Filtration 27 34 Rate Random Glucose 132 91 Calcium Level 9.0 8.7 Total Bilirubin 0.4 Aspartate Amino Transf 18 (AST/SGOT) Alanine Aminotransferase 26 (ALT/SGPT) Alkaline Phosphatase 67 Total Protein 7.7 Albumin 3.6 Digoxin Level 0.8 Urine Color LIGHT-YELLOW Urine Turbidity CLEAR Urine pH 5.0 Urine Specific [place] 1.008 Urine Protein NEG Urine Glucose (UA) NEG Urine Ketones NEG Urine Occult Blood NEG Urine Nitrite NEG Urine Bilirubin NEG Urine Urobilinogen LESS THAN 2.0 Urine Leukocyte Esterase NEG 25-Hydroxy Vitamin D Total 23.8 Parathyroid Hormone (Intact) 148.5 Result Diagram: 10/07/16 1130 10/08/16 0540 Imaging Last Impressions Renal Ultrasound 10/07/16 0000 Signed Impressions: Service Date/Time: Friday, October 07, 2016 13:46 - CONCLUSION: 1. Bilateral dilatation of the collecting systems and ureters being worse on the right. 2. Distended trabeculated bladder. There is a large postvoid residual. Bladder outlet obstruction needs to be suspected. 3. Prostatic enlargement. Shorty Wolf MD Chest X-Ray 10/07/16 0000 Signed Impressions: Service Date/Time: Friday, October 07, 2016 11:42 - CONCLUSION: 1. Interstitial changes and mild cardiomegaly. 2. Minimal right basilar pleural effusion. 3. Of note, the third sternal wire is no longer intact. 4. No acute abnormalities. Eddie Barkley MD Assessment and Plan Assessment and Plan Urologic impression: #1 bladder outlet obstruction most likely from prostatic enlargement #2 dilation of the renal collecting system bilaterally related to urinary retention Recommendations: #1 maintain Coe catheter to gravity drainage #2 implement medical management of BPH with tamsulosin and finasteride #3 urologically cleared to discharge home with Coe catheter 1 medically stable #4 office follow up within 1-2 weeks for trial of voiding #5 May require further outpatient workup to include cystoscopy and possibly urodynamics Problem Qualifiers (1) Acute on chronic kidney failure: Qualified Code: N17.9 - Acute renal failure superimposed on chronic kidney disease, unspecified CKD stage, unspecified acute renal failure type Kristian Ramos MD Oct 08, 2016 09:35
[2016-10-08] MEDS: FINASTERIDE 5 MG TAB PO SCH (10:26)
[2016-10-08] MEDS: TAMSULOSIN HCL 0.4 MG CAP PO SCH (10:27)
[2016-10-08] MEDS ORDERED: diphenhydrAMINE HCL 50 MG CAP PO PRN (10:30)
--- NOTE | 2016-10-08 16:47 | HHI.NPPN ---
Subjective History of Present Illness This patient is an 86-year-old male indicates that he does have a history of chronic kidney disease and sees a director of strategic initiatives at the [place]. Apparently his primary care physician advised him to come to the hospital after he was noted that his creatinine risen to 2.2 with a urea nitrogen of 97. Denies any previous urological problems or any difficulty urinating however on presentation the patient was noted to have evidence of hydronephrosis with a significantly elevated post void bladder urine volume. Interval History Urology consultation noted. Patient indicated that he was feeling better with no verbal complaints. Objective Data Data 10/07/16 10/08/16 19:00 07:00 Intake Total 240 ml 360 ml Output Total 200 ml 900 ml Balance 40 ml -540 ml Intake Oral 240 ml 360 ml Output Urine Total 200 ml 900 ml Bladder Scan Volume Amount 411 ml Vital Signs Date Time Temp Pulse Resp B/P Pulse Ox O2 Delivery O2 Flow Rate FiO2 10/08/16 16:00 97.7 78 18 108/58 98 10/08/16 15:30 73 10/08/16 12:00 98.2 74 18 118/60 99 10/08/16 09:30 97 Nasal Cannula 2.50 10/08/16 08:06 72 10/08/16 08:00 97.6 79 18 110/55 99 10/08/16 04:00 97.0 70 16 114/58 98 10/08/16 00:00 96.6 74 17 118/57 99 10/07/16 20:30 99 Nasal Cannula 2.50 10/07/16 20:00 75 10/07/16 20:00 96.3 69 16 107/55 99 -: 10/07/16 1130 10/08/16 0540 Tubes & Lines: Coe Physical Exam General Appearance: No Acute Distress, Comfortable, Malnourished Eyes Eye Exam: Sclera White Pulmonary Resp Exam: Clear Bilaterally, Breath Sounds Equal, No Distress Cardiology CV Exam: Regular, Normal Sinus Rhythm, Good Perfusion Gastrointestinal/Abdomen GI Exam: Soft, Non-Tender Integumentary Skin Exam: Clear, Warm Assessment/Plan Discussed Condition With: Patient Problem List: (1) Acute renal insufficiency Plan: The primary issue here is obstructive uropathy. Patient's renal function has improved and likely approaching baseline. Discharge planning okay from renal point of view at this point in time with follow-up with urology and his outpatient director of strategic initiatives. Medications should be adjusted for the patient's estimated GFR if clinically indicated. Avoid agents with significant potential for nephrotoxicity possible including NSAIDs for analgesia, iodine contrast agents. Gadolinium is contraindicated if the GFR is below 30. We'll sign off at this point in time. Please recall if needed. Patient advised to continue vitamin D post discharge. (2) Obstructive uropathy Plan: Recommendations as above. (3) Chronic kidney disease Plan: Being followed as an outpatient by his [facility] director of strategic initiatives. We'll screen for secondary hyperparathyroidism of renal disease. The patient will be seen when necessary. (4) History of congestive heart failure Plan: Currently compensated. 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 Supplement vitamin D, 25-hydroxy level first. His outpatient director of strategic initiatives will have to follow up vitamin D and intact PTH levels to determine whether or not Calcitrol is subsequently indicated if persisting hyperparathyroidism persists despite an adequate vitamin D 25- hydroxy level. Patient counseled regarding above. Tr Weller MD Oct 08, 2016 16:47
[2016-10-08] MEDS: CHOLECALCIFEROL (VIT D3) 1000 UNIT TAB PO SCH (16:58)
[2016-10-08] MEDS ORDERED: POTASSIUM CHLORIDE 20 MEQ CONTROLLED RELEASE TAB PO ONE (17:00)
[2016-10-08] MEDS: PRIMIDONE 50 MG TAB PO SCH (20:24)
[2016-10-09] VITALS (8 sets, daily range): BP systolic 102–124; BP diastolic 56–66; PULSE 60–77; RESP 16–20; TEMP 96–97.6; O2SAT 97–100
[2016-10-09] MEDS: LEVOTHYROXINE SODIUM 75 MCG TAB PO SCH (05:57)
[2016-10-09] MEDS: INSULIN ASPART SUPPLEMENTAL SCALE SQ SCH ×4 (05:57→21:26)
[2016-10-09 08:08] LABS: POTASSIUM 3.8 MEQ/L (3.5-5.1)
[2016-10-09] MEDS: ALLOPURINOL 300 MG TAB PO SCH (10:22)
[2016-10-09] MEDS: CHOLECALCIFEROL (VIT D3) 1000 UNIT TAB PO SCH (10:22)
[2016-10-09] MEDS: TAMSULOSIN HCL 0.4 MG CAP PO SCH (10:23)
[2016-10-09] MEDS: PANTOPRAZOLE SOD 20 MG DELAYED RELEASE TAB PO SCH (10:23)
[2016-10-09] MEDS: FINASTERIDE 5 MG TAB PO SCH (10:23)
[2016-10-09] MEDS: FERROUS SULFATE 325 MG (65 MG ELEMENTAL IRON) TAB PO SCH (10:23)
[2016-10-09] MEDS: METOPROLOL SUCCINATE 50 MG EXTENDED RELEASE TAB PO SCH (10:23)
[2016-10-09] MEDS: ASPIRIN EC 81 MG TABEC PO SCH (10:23)
[2016-10-09] MEDS: BUDESONIDE-FORMOTEROL 160/4.5 MCG INHALER INH SCH ×2 (10:24→20:26)
--- NOTE | 2016-10-09 10:42 | HHI.PR ---
Subjective Remarks The patient reports she was trying to get in touch with [facility] to update him. He said that he feels like fluid is building up and he is coughing and mucus. He would like his diuretics resumed. He understands he will be going home with the Coe catheter. No other acute complaints. Discussed with nursing. Objective Vitals Vital Signs Date Time Temp Pulse Resp B/P Pulse Ox O2 Delivery O2 Flow Rate FiO2 10/09/16 04:00 97.0 71 18 112/58 99 10/09/16 00:00 97.6 75 17 110/60 99 10/08/16 22:36 77 10/08/16 20:14 Nasal Cannula 2.50 10/08/16 20:00 98.0 70 18 110/56 98 10/08/16 16:00 97.7 78 18 108/58 98 10/08/16 15:30 73 10/08/16 12:00 98.2 74 18 118/60 99 I/O 10/08/16 10/08/16 10/08/16 10/09/16 10/09/16 10/09/16 07:00 15:00 23:00 07:00 15:00 23:00 Intake Total 120 ml 720 ml 240 ml Output Total 800 ml 900 ml 500 ml Balance -680 ml -180 ml -260 ml Intake Oral 120 ml 720 ml 240 ml Output Urine Total 800 ml 900 ml 500 ml Bladder Scan Volume Amount 411 ml 411 ml 411 ml # Bowel Movements 0 1 Result Diagram: 10/07/16 1130 10/09/16 0700 Imaging Last Impressions Renal Ultrasound 10/07/16 0000 Signed Impressions: Service Date/Time: Friday, October 07, 2016 13:46 - CONCLUSION: 1. Bilateral dilatation of the collecting systems and ureters being worse on the right. 2. Distended trabeculated bladder. There is a large postvoid residual. Bladder outlet obstruction needs to be suspected. 3. Prostatic enlargement. Shorty Wolf MD Chest X-Ray 10/07/16 0000 Signed Impressions: Service Date/Time: Friday, October 07, 2016 11:42 - CONCLUSION: 1. Interstitial changes and mild cardiomegaly. 2. Minimal right basilar pleural effusion. 3. Of note, the third sternal wire is no longer intact. 4. No acute abnormalities. Eddie Barkley MD Objective Remarks GENERAL: Elderly male, in no apparent distress. HEENT: NC, AT. CARDIOVASCULAR: Regular rate and regular rhythm without murmurs, gallops, or rubs. RESPIRATORY: Clear to auscultation. Breath sounds equal bilaterally. No wheezes , rales or rhonchi. GASTROINTESTINAL: Abdomen soft, non-tender, nondistended. Normoactive bowel sounds. : Coe cath in place MUSCULOSKELETAL: Extremities without clubbing, cyanosis or edema. NEURO: Alert & Oriented x4 to person, place, time, situation. Moves all ext x4. PSYCH: Mood and affect appropriate. Procedures none Medications and IVs Current Medications Medications (Trade) Dose Ordered Sig/Adi Route Start Time Stop Time Status Last Admin (D50w (Vial) Inj) 50 ml UNSCH PRN IV 10/07/16 13:15 (Glucagon Inj) 1 mg UNSCH PRN OTHER 10/07/16 13:15 (Tylenol) 650 mg Q4H PRN PO 10/07/16 13:15 10/08/16 08:00 (Zofran Inj) 4 mg Q8HR PRN IV PUSH 10/07/16 13:15 (Zyloprim) 150 mg DAILY PO 10/08/16 09:00 10/09/16 10:22 (Ecotrin Ec) 81 mg DAILY PO 10/08/16 09:00 10/09/16 10:23 (Symbicort 160-4.5 Inh) 2 puff Q12HR INH 10/07/16 21:00 10/09/16 10:24 (Lanoxin) 0.125 mg MOWEFR PO 10/09/16 13:30 (Ferrous Sulfate) 325 mg DAILY PO 10/08/16 09:00 10/09/16 10:23 (Toprol Xl) 50 mg DAILY PO 10/08/16 09:00 10/09/16 10:23 (Mysoline) 100 mg HS PO 10/07/16 21:00 10/08/16 20:24 (Protonix) 20 mg DAILY PO 10/08/16 09:00 10/09/16 10:23 (Pill Splitter) 1 ea UNSCH PRN OTHER 10/07/16 13:45 (Proscar) 5 mg DAILY PO 10/08/16 09:45 10/09/16 10:23 (Flomax) 0.4 mg DAILY PO 10/08/16 09:45 10/09/16 10:23 (Synthroid) 75 mcg DAILY@06 PO 10/09/16 06:00 10/09/16 05:57 (Benadryl) 50 mg HS PRN PO 10/08/16 10:30 (Vitamin D3) 2,000 units DAILY PO 10/08/16 17:00 10/09/16 10:22 A/P Problem List: (1) Acute on chronic kidney failure ICD Code: N17.9 Status: Acute Assessment and Plan Acute on chronic renal failure The pt was referred to the ER by his PCP for elevated BUN/ Creatinine. Renal US : Bilateral dilatation of the collecting systems and ureters being worse on the right; Distended trabeculated bladder; There is a large postvoid residual; Bladder outlet obstruction needs to be suspected; Prostatic enlargement. Nephrology and urology were consulted. Coe catheter is in place. Creatinine improved. - continue Coe catheter and follow up with urology as an outpt for voiding trial and further work-up. - resume diuretics and monitor BMP. - continue Flomax and finasteride. Chronic CHF Diuretics were held s/t renal failure but the pt is feeling congested. - CXR pending. - resume diuretics. - PT. COPD On home oxygen. - resumed Symbicort. - neb treatment as needed. Diabetes mellitus Well controlled at this time. - on accu-check with SSI. CAD No complaints of chest pain at this time. - continue aspirin and BB. DVT prophylaxis with SCD's Discharge Planning Anticipate discharge back to [facility] in the morning if breathing better Problem Qualifiers (1) Acute on chronic kidney failure: Qualified Code: N17.9 - Acute renal failure superimposed on chronic kidney disease, unspecified CKD stage, unspecified acute renal failure type Donovan Washington DO Oct 09, 2016 10:42
[2016-10-09] MEDS: BUMETANIDE 1 MG TAB PO SCH ×2 (11:27→20:25)
[2016-10-09] MEDS: SPIRONOLACTONE 25 MG TAB PO SCH (11:27)
--- NOTE | 2016-10-09 11:55 | RADRPT ---
EXAM DATE/TIME: 10/09/2016 11:12 [place] COMPARISON: CHEST SINGLE AP, October 07, 2016, 11:42. INDICATIONS : Dyspnea. MEDICAL HISTORY : Diabetes mellitus type II. Congestive heart failure. SURGICAL HISTORY : Heart ablation. Open heart surgery. ENCOUNTER: Subsequent ACUITY: 3 days PAIN SCORE: 0/10 LOCATION: chest FINDINGS: 2 AP views of the chest demonstrate a normal-sized cardiac silhouette with calcification of the aorta in this patient post median sternotomy. Left chest wall cardiac pacing device is present. There is r ight basilar pleural-parenchymal opacity. No pneumothorax is visualized. Bones and soft tissues demon strate no acute finding. CONCLUSION: Stable chest x-ray with small right pleural effusion with associated atelectasis or mild consolidatio n at the right lung base. Shorty Deras MD on October 09, 2016 at 11:50 Board Certified Radiologist. This report was verified electronically.
[2016-10-09] MEDS ORDERED: DIGOXIN 0.125 MG TAB PO SCH (13:30)
[2016-10-09] MEDS: PRIMIDONE 50 MG TAB PO SCH (20:25)
[2016-10-10] VITALS: BP 103/59; PULSE 74; RESP 17; TEMP 96.3; O2SAT 97
[2016-10-10 04:00] VITALS: BP 98/55; PULSE 75; RESP 17; TEMP 97; O2SAT 98
[2016-10-10] MEDS: LEVOTHYROXINE SODIUM 75 MCG TAB PO SCH (05:24)
[2016-10-10] MEDS: INSULIN ASPART SUPPLEMENTAL SCALE SQ SCH (06:22)
[2016-10-10 08:00] VITALS: BP 99/55; PULSE 78; RESP 18; TEMP 96.3; O2SAT 100
[2016-10-10 08:40] LABS: BICARBONATE 33.5 MEQ/L (21.0-32.0); MAGNESIUM 1.9 MG/DL (1.5-2.5); POTASSIUM 3.6 MEQ/L (3.5-5.1)
[2016-10-10] MEDS: FERROUS SULFATE 325 MG (65 MG ELEMENTAL IRON) TAB PO SCH (09:00)
[2016-10-10] MEDS: FINASTERIDE 5 MG TAB PO SCH (09:16)
[2016-10-10] MEDS: TAMSULOSIN HCL 0.4 MG CAP PO SCH (09:17)
[2016-10-10] MEDS: ALLOPURINOL 300 MG TAB PO SCH (09:18)
[2016-10-10] MEDS: PANTOPRAZOLE SOD 20 MG DELAYED RELEASE TAB PO SCH (09:18)
[2016-10-10] MEDS: ASPIRIN EC 81 MG TABEC PO SCH (09:18)
[2016-10-10] MEDS: CHOLECALCIFEROL (VIT D3) 1000 UNIT TAB PO SCH (09:18)
[2016-10-10] MEDS: BUDESONIDE-FORMOTEROL 160/4.5 MCG INHALER INH SCH (09:19)
[2016-10-10] MEDS: BUMETANIDE 1 MG TAB PO SCH (09:19)
[2016-10-10] MEDS: METOPROLOL SUCCINATE 50 MG EXTENDED RELEASE TAB PO SCH (09:19)
[2016-10-10] MEDS: SPIRONOLACTONE 25 MG TAB PO SCH (09:19)
[2016-10-10 09:31] VITALS: O2SAT 93; O2SAT 99
[2016-10-10] MEDS ORDERED: FINA5TAB2 PO (11:20)
[2016-10-10] MEDS ORDERED: TAMS5CAP PO (11:20)
--- NOTE | 2016-10-10 11:23 | HHI.DCPOC ---
Discharge Care Plan Diagnosis: (1) Obstructive uropathy (2) Acute renal insufficiency (3) Acute on chronic kidney failure (4) History of congestive heart failure Goals to Promote Your Health * To prevent worsening of your condition and complications * To maintain your health at the optimal level Directions to Meet Your Goals Take your medications as prescribed Follow your dietary instruction Follow activity as directed Keep your appointments as scheduled Take your immunizations and boosters as scheduled If your symptoms worsen call your PCP, if no PCP go to Urgent Care Center or Emergency Room Smoking is Dangerous to Your Health. Avoid second hand smoke Call the 24-hour hour crisis hotline for domestic abuse at Donovan Washington DO Oct 10, 2016 11:23
--- NOTE | 2016-10-10 11:24 | HHI.FF ---
Face to Face Verification Diagnosis: (1) Acute on chronic kidney failure (2) Obstructive uropathy (3) History of congestive heart failure Physical Therapy Order: Evaluate and Treat, Improve ambulation, Strength and gait training Home Health Nursing Order: Medical education Signs/symptoms of disease process Diabetic education CHF education Oxygen administration education Medication education-adverse effect Nursing assessment with vital signs I have seen patient Misha Beltran on 10/10/16. My clinical findings support the need for the requested home health care services because: Ltd mobility - disease progression Patient has SOB Deconditioned w/ increased weakness Limited ability to care for self High risk of falls I certify that my clinical findings support that this patient is homebound because: Hx COPD- exertion dyspnea/weakness Unsteady gait/balance Unsafe to leave home unassisted Donovan Washington DO Oct 10, 2016 11:24
--- NOTE | 2016-10-10 11:35 | HHI.DS ---
Discharge Summary Admission Date Oct 07, 2016 at 13:47 Discharge Date: Oct 10, 2016 Admitting Diagnosis renal failure (1) Acute on chronic kidney failure ICD Code: N17.9 Diagnosis: Principal (2) History of congestive heart failure ICD Code: Z86.79 (3) Obstructive uropathy ICD Code: N13.9 Diagnosis: Principal Procedures none Brief History - From Admission patient is a 86 y/o male with history of renal insufficiency, CHF, diabetes, COPD, Parkinson's disease,hypothyroidism, who presented to ER after he was advised to come to the hospital by his PCP. he says that he had a ' blood work' done few days ago and he was called with the result of his blood work and advised to come to ER due to his elevated BUN and creatinine. however he denies any new symptom- including chest pain, nausea, abdominal pain, dizziness. he says that he's had some sob ' which is not new' and he relates this to his CHF and COPD. of note he's on home oxygen. CBC/BMP: 10/07/16 1130 10/10/16 0703 Significant Findings Laboratory Tests Test 10/07/16 10/08/16 10/09/16 10/10/16 11:30 05:40 07:00 07:03 Red Blood Count 3.46 MIL/MM3 (4.50-5.90) Hemoglobin 11.4 GM/DL (13.0-17.0) Hematocrit 32.6 % (39.0-51.0) Platelet Count 123 TH/MM3 (150-450) Neutrophils (%) (Auto) 74.1 % (16.0-70.0) Monocytes (%) (Auto) 9.9 % (0.0-8.0) Sodium Level 135 MEQ/L (136-145) Chloride Level 96 MEQ/L (98-107) Carbon Dioxide Level 32.6 MEQ/L 33.5 MEQ/L (21.0-32.0) (21.0-32.0) Blood Urea Nitrogen 101 MG/DL 90 MG/DL (7-18) 74 MG/DL (7-18) 68 MG/DL (7-18) (7-18) Creatinine 2.30 MG/DL 1.86 MG/DL 1.48 MG/DL 1.68 MG/DL (0.60-1.30) (0.60-1.30) (0.60-1.30) (0.60-1.30) Estimat Glomerular Filtration 27 ML/MIN (>89) 34 ML/MIN (>89) 45 ML/MIN (>89) 39 ML/MIN (>89) Rate Random Glucose 132 MG/DL (74-106) 25-Hydroxy Vitamin D Total 23.8 ng/ML (30-100) Parathyroid Hormone (Intact) 148.5 PG/ML (12.4-76.8) Imaging Last Impressions Chest X-Ray 10/09/16 0000 Signed Impressions: Service Date/Time: Sunday, October 09, 2016 11:12 - CONCLUSION: Stable chest x-ray with small right pleural effusion with associated atelectasis or mild consolidation at the right lung base. Shorty Deras MD Renal Ultrasound 10/07/16 0000 Signed Impressions: Service Date/Time: Friday, October 07, 2016 13:46 - CONCLUSION: 1. Bilateral dilatation of the collecting systems and ureters being worse on the right. 2. Distended trabeculated bladder. There is a large postvoid residual. Bladder outlet obstruction needs to be suspected. 3. Prostatic enlargement. Shorty Wolf MD PE at Discharge GENERAL: Elderly male, in no apparent distress. HEENT: NC, AT. CARDIOVASCULAR: Regular rate and regular rhythm without murmurs, gallops, or rubs. RESPIRATORY: Clear to auscultation. Breath sounds equal bilaterally. No wheezes , rales or rhonchi. GASTROINTESTINAL: Abdomen soft, non-tender, nondistended. Normoactive bowel sounds. : Coe cath in place MUSCULOSKELETAL: Extremities without clubbing, cyanosis or edema. NEURO: Alert & Oriented x4 to person, place, time, situation. Moves all ext x4. PSYCH: Mood and affect appropriate. Pt update on day of discharge The patient was sitting in a chair. He said his breathing was better. He wanted to know what his chest x-ray showed. No acute complaints at this time. Hospital Course Acute on chronic renal failure The pt was referred to the ER by his PCP for elevated BUN/ Creatinine. Renal US : Bilateral dilatation of the collecting systems and ureters being worse on the right; Distended trabeculated bladder; There is a large postvoid residual; Bladder outlet obstruction needs to be suspected; Prostatic enlargement. Nephrology and urology were consulted. Coe catheter is in place. Creatinine improved. He will continue a Coe catheter and will follow up with urology as an outpt for voiding trial and further work-up. We resumed diuretics. He will need a BMP monitored as an outpt. He will continue Flomax and finasteride. Case management assisted with returning the pt back to his [facility]. He worked with physical therapy. Chronic CHF Diuretics were held s/t renal failure but the pt was feeling congested so they were resumed. Repeat CXR stable. He will follow up with his hse advisor. His ARB was held s/t relatively low blood pressure. COPD On home oxygen. We resumed Symbicort. He received neb treatments as needed. Pt Condition on Discharge: Stable Discharge Disposition: ACLF/INTERMEDIATE Discharge Time: > 30 minutes Discharge Instructions DIET: Follow Instructions for: Heart Healthy Diet, Diabetic Diet Activities you can perform: Weight Bearing as Kay Follow up Referrals: Cardiology - 1 Week Nephrology - 1 Week PCP Follow-up - 1 Week Urology - 1 Week with Kristian Ramos MD Vascular Surgery New Orders: BASIC METABOLIC PROF - 3-5 Days New Medications: Finasteride (Finasteride) 5 Mg Tab 5 MG PO DAILY Urinary retention #30 TAB Tamsulosin (Flomax) 0.4 Mg Cap 0.4 MG PO DAILY Urinary retention #30 CAP Continued Medications: Allopurinol (Allopurinol) 300 Mg Tab 150 MG PO DAILY Gout #[address] (Aspirin Adult Low Strength) 81 Mg Tabdr 81 MG PO DAILY TAB Budesonide-Formoterol Inh (Symbicort Inh) 160-4.5 Mcg/Act Aero 2 PUFF INH Q12HR #1 Ref 0 INHALER Bumetanide (Bumetanide) 2 Mg Tab 2 MG PO BID Fluid Retention Ref 0 TAB Digoxin (Lanoxin) 125 Mcg Tablet 62.5 MCG PO SUNDAY Take 1/2 tab (62.5mcg) weekly on Sundays Digoxin (Lanoxin) 125 Mcg Tablet 125 MCG PO Take 1 tablet (125mcg) daily on Sunday,Sunday and Sunday Ferrous Sulfate (Ferrousul) 325 Mg Tab 325 MG PO DAILY Nutritional Supplement Glipizide (Glipizide) 5 Mg Tab 5 MG PO BID Blood Sugar Management #60 Ref 0 TAB Levothyroxine (Levothyroxine) 75 Mcg Tab 75 MCG PO DAILY Thyroid #30 Ref 0 TAB Metolazone (Metolazone) 2.5 Mg Tab 2.5 MG PO EVERY 48 HOURS PRN INCREASE IN BLOOD PRESSURE #30 Ref 0 TAB Metoprolol Succinate ER 24 HR (Metoprolol Succinate ER 24 HR) 50 Mg Tab 50 MG PO DAILY Heart Failure #30 Ref 0 TAB Omeprazole (Omeprazole) 20 Mg Tab 20 MG PO DAILY Take 30 minutes before meal #30 Ref 0 TAB Potassium Chloride ER (Potassium Chloride ER) 10 Meq Tab 10 MEQ PO BID Electrolyte Replacement #60 Ref 0 TAB Primidone (Primidone) 50 Mg Tab 100 MG PO HS Tremors #120 Ref 0 TAB Spironolactone (Aldactone) 25 Mg Tab 25 MG PO DAILY Fluid Retention #30 Ref 0 TAB Trazodone (Trazodone) 50 Mg Tab 50 MG PO HS Insomnia #30 Ref 0 TAB Discontinued Medications: Losartan (Losartan) 25 Mg Tab 25 MG PO DAILY Blood Pressure Management #30 Ref 0 TAB Donovan Washington DO Oct 10, 2016 11:34
[2016-10-10] MEDS ORDERED: POTASSIUM CHLORIDE 20 MEQ CONTROLLED RELEASE TAB PO ONE (11:45)
[2016-10-10 12:00] VITALS: BP 118/60; PULSE 73; RESP 18; TEMP 97.8; O2SAT 99
== END 2016-10-10 14:22 | DRG 683 ==
LOC: NEPC 11:07 → NEDA 13:47 → HOCA 15:19
PROVIDERS: ADMIT Hospitalist; ATTEND Hospitalist
DX: N17.9 Acute kidney failure, unspecified (principal); N13.8 Other obstructive and reflux uropathy; E11.22 Type 2 diabetes mellitus with diabetic chronic kidney disease; G20 Parkinson's disease; E03.9 Hypothyroidism, unspecified; N18.9 Chronic kidney disease, unspecified; E78.5 Hyperlipidemia, unspecified; I25.10 Atherosclerotic heart disease of native coronary artery without angina pectoris; I48.91 Unspecified atrial fibrillation; I50.9 Heart failure, unspecified; J44.9 Chronic obstructive pulmonary disease, unspecified; K21.9 Gastro-esophageal reflux disease without esophagitis; N32.0 Bladder-neck obstruction; N40.1 Benign prostatic hyperplasia with lower urinary tract symptoms; N25.81 Secondary hyperparathyroidism of renal origin; Z66 Do not resuscitate; Z87.891 Personal history of nicotine dependence; Z95.1 Presence of aortocoronary bypass graft; Z99.81 Dependence on supplemental oxygen
CPT/HCPCS: 71010; 76775; 80048; 80053; 80162; 81003; 82306; 82948; 83735; 83970; 85025; 94664; 96360; J1815; J7030; J7040; J7613; Q0163